=== PATIENT | female | born 1950 | race Caucasian/White ===

== ENCOUNTER → 2023-08-02 11:09 | Outpatient (REF) | payer MEDICARE, OTHER, SELFPAY | LOC: HWRAD 11:09 | PROVIDERS: ATTENDING PHYSICIAN Internal Medicine Rheumatology; FAMILY PHYSICIAN Internal Medicine | DX: M81.0 Age-related osteoporosis without current pathological fracture (principal) | CPT/HCPCS: 77080 ==

== ENCOUNTER 2024-07-03 18:37 | Emergency (ER) | payer MEDICARE, OTHER, SELFPAY ==
[2024-07-03 18:56] VITALS: BP 136/76
--- NOTE | 2024-07-03 18:56 | ED.GENMED ---
ED Provider Triage
<Reji Vyas PA-C - Last Filed: 07/03/24 18:58>
-
Patient seen by provider in Triage?: Seen in Triage
Attestation: A medical screening examination has been initiated by a qualified medical provider. Based on the assessment performed at this time, it has been determined that an emergent medical condition may exist and the patient has been informed
that further medical evaluation and possible additional diagnostic testing may be needed.
HPI: 74-year-old female presenting to the ER for evaluation of sternal chest pain that began around 5:00 described to be a crushing sensation, currently much more dull. Patient noted that she had some pain in her left arm over the weekend which she
took an aspirin for but without much relief. No fevers or infectious symptoms. No recent travel. There is a family history with both mother and father having acute MIs. Patient herself does all conditions. Labs ordered. EKG without any
evidence for acute ischemic changes.
GENERAL: Alert , in no apparent distress
EYE: No visual abnormalities.
NECK: Trachea midline
ENT: No visible abnormalities.
LUNGS: No acute respiratory distress
NEUROLOGICAL: Alert and oriented
SKIN: Skin intact. No visible changes.
MUSCULOSKELETAL: Moving extremities normally
PSYCH: Normal and appropriate interaction.
This is a medical evaluation conducted in person to initiate diagnostic evaluation and provide initial therapeutics. Please see further documentation by the treating clinician.
History of Present Illness
<Reji Vyas PA-C - Last Filed: 07/03/24 18:58>
General
Chief Complaint: Chest Pain
Time Seen by Provider: 07/03/24 20:05
<Nay Veloz DO - Last Filed: 07/04/24 03:04>
History of Present Illness
History of Present Illness:
74-year-old female with out significant past medical history presenting to the emergency department for episode of severe chest pain. Patient reports prior to arrival she was getting ready for dinner and had pain in the midsternal area of her chest
that was severe in quality. Symptoms lasted about 30 minutes and have since resolved. Does note that yesterday she had a pain in her left upper extremity, which also went away on its own. Denies known cardiac history, however does report family
history of cardiac disease. Reports that her pain is currently a 1 out of 10. Denies any difficulty breathing. Denies any recent fever or illness. Denies history of blood clots, recent surgery, recent travel. Denies abdominal pain or GI
symptoms. Denies additional acute medical complaints.
Past History
<Reji Vyas PA-C - Last Filed: 07/03/24 18:58>
Past History
ED Past Medical History: None and Other (Constipation, )
ED Past Surgical History: Appendectomy, Bowel resection (Colon resection ), (X 2) and Other
Social History
Tobacco: Non-smoker
Alcohol: None
Drug: None
Personal:
Living: alone
Phy Exam
<Nay Veloz DO - Last Filed: 07/04/24 03:04>
Physical Exam
Physical Exam:
General: Well-appearing, no clinical signs of dehydration, nontoxic and in no acute distress
HEENT: protecting airway
Neck: appears supple
CV: Normal heart rate, regular rhythm
Resp: No accessory muscle use, no increased work of breathing, lungs clear to auscultation bilaterally
Abd: no distension, no tenderness
Extremities: No deformities, no swelling
Neuro: alert, no focal neurologic deficit
: deferred
Rectal: deferred
Psych: Normal affect
Skin: Intact
Scores
<Nay Veloz DO - Last Filed: 07/04/24 03:04>
Heart Score for Chest Pain Patients
STEMI patient?: No
History: Slightly or Non-Suspicious
ECG: Normal
Age: >/= 65 years
Risk Factors: 1 or 2 Risk Factors
Troponin: </= Normal Limit
Heart Score for Chest Pain Patients: 3
Heart Score Risk: 2.5% MACE over next 6 weeks
Course
<Reji Vyas PA-C - Last Filed: 07/03/24 18:58>
Orders/Labs/Results
Orders:
Orders
07/03/24 18:38
Electrocardiogram (*1) Urgent
Reason for Study: Chest Pain
EKG- Treatment ONCE
07/03/24 19:03
Complete Blood Count/With Diff Urgent
Comprehensive Metabolic Panel Urgent
D-Dimer Urgent
Lipase Urgent
Troponin I Urgent
07/03/24 19:28
CT Chest PE Study Urgent
Comment:
Reason For Exam: chest pain, elevated d-dimer
07/03/24 20:38
Electrocardiogram (*1) Urgent
Reason for Study: Chest Pain
EKG- Treatment ONCE
07/03/24 21:41
Troponin I Urgent
Abnormal Lab Results
07/03/24
19:03
WBC 11.7 H 10^3/uL
(4.8-10.8)
RBC 3.93 L 10^6/uL
(4.20-5.40)
Hct 36.7 L %
(37.0-47.0)
MCH 31.3 H pg
(27.0-31.0)
Absolute Neuts (auto) 8.3 H 10^3/uL
(1.4-6.5)
Absolute Monos (auto) 0.9 H 10^3/uL
(0.1-0.6)
Lymphocytes % 19.3 L %
(20.5-51.1)
D-Dimer 1.13 H ug/mlFEU
(0.00-0.50)
Chloride 97 L mmol/L
(98-107)
Carbon Dioxide 31 H mmol/L
(22-30)
Creatinine 0.5 L mg/dL
(0.6-1.0)
Glucose 109 H mg/dl
(70-99)
AST 45 H U/L
(14-36)
ALT 37 H U/L
(0-35)
07/03/24 19:03
07/03/24 19:03
Vital Signs
Initial and Last Documented VS:
Initial Vital Signs
Pulse Resp BP Pulse Ox
80 22 136/76 9
07/03/24 18:56 07/03/24 18:56 07/03/24 18:56 07/03/24 18:56
Last Documented Vital Signs
Pulse Resp BP Pulse Ox
85 20 154/87 96
07/03/24 20:03 07/03/24 20:03 07/03/24 20:02 07/03/24 20:03
<Nay Veloz, DO - Last Filed: 07/04/24 03:04>
Orders/Labs/Results
Orders:
Orders
07/03/24 18:38
Electrocardiogram (*1) Urgent
Reason for Study: Chest Pain
EKG- Treatment ONCE
07/03/24 19:03
Complete Blood Count/With Diff Urgent
Comprehensive Metabolic Panel Urgent
D-Dimer Urgent
Lipase Urgent
Troponin I Urgent
07/03/24 19:28
CT Chest PE Study Urgent
Comment:
Reason For Exam: chest pain, elevated d-dimer
07/03/24 20:38
Electrocardiogram (*1) Urgent
Reason for Study: Chest Pain
EKG- Treatment ONCE
07/03/24 21:41
Troponin I Urgent
Abnormal Lab Results
07/03/24
19:03
WBC 11.7 H 10^3/uL
(4.8-10.8)
RBC 3.93 L 10^6/uL
(4.20-5.40)
Hct 36.7 L %
(37.0-47.0)
MCH 31.3 H pg
(27.0-31.0)
Absolute Neuts (auto) 8.3 H 10^3/uL
(1.4-6.5)
Absolute Monos (auto) 0.9 H 10^3/uL
(0.1-0.6)
Lymphocytes % 19.3 L %
(20.5-51.1)
D-Dimer 1.13 H ug/mlFEU
(0.00-0.50)
Chloride 97 L mmol/L
(98-107)
Carbon Dioxide 31 H mmol/L
(22-30)
Creatinine 0.5 L mg/dL
(0.6-1.0)
Glucose 109 H mg/dl
(70-99)
AST 45 H U/L
(14-36)
ALT 37 H U/L
(0-35)
07/03/24 19:03
07/03/24 19:03
Vital Signs
Initial and Last Documented VS:
Initial Vital Signs
Pulse Resp BP Pulse Ox
80 22 136/76 9
07/03/24 18:56 07/03/24 18:56 07/03/24 18:56 07/03/24 18:56
Last Documented Vital Signs
Pulse Resp BP Pulse Ox
85 20 154/87 96
07/03/24 20:03 07/03/24 20:03 07/03/24 20:02 07/03/24 20:03
<Nay Veloz, DO - Last Filed: 07/04/24 03:04>
MDM/Problems Addressed
MDM/Problems Addressed:
74-year-old female presenting for episode of severe midsternal chest pain prior to arrival. Vital signs on arrival are normal.
On exam patient is resting comfortably, no acute distress or discomfort. Notes that her symptoms have improved significantly since arrival to the hospital. EKG obtained on arrival, incomplete right bundle branch block without evidence of acute
ischemia. Unremarkable cardiac and pulmonary exam. Patient had laboratory analysis prior to my assessment with undetectable troponin. Lower suspicion for ACS. However, patient also had a D-dimer sent prior to my assessment positive. For
specific activities rule out PE. Aortic pathology is also consideration. Plan for CT chest imaging. Will continue to closely monitor and repeat troponin within 3-hour interval. No tenderness to abdomen without concern for serious intra-abdominal
process or infection.
22:30 - CT chest without acute pathology. Second troponin is undetectable and repeat EKG is unchanged. At this time feel stable for discharge, however with close outpatient follow-up with checkout operator given family history of cardiac disease.
Return precautions discussed with patient and verbalized understanding
<Nay Veloz DO - Last Filed: 07/04/24 03:04>
*EKG
Interpreted by ED Provider?: Yes
EKG Intrepretation Date: 07/03/24
EKG Intrepretation Time: 20:53
Interpretation: normal
Comparison EKG: no comparison EKG present
Heart Rate: 78
Rate: normal
Rhythm: sinus
[place]: normal axis
Interval: normal interval
QRS Pattern: other (incomplete RBBB)
Ischemia: no ischemia
*Critical Care Note
Total Time (30-74mins, 75-104mins- exclusive of procedures): Not Applicable
ED Attending Note
<Reji Vyas PA-C - Last Filed: 07/03/24 18:58>
-
Portions of this chart may have been created with voice recognition software.� Occasional wrong word or��sound alike� substitutions may have occurred due to the inherent limitations of voice recognition software.
Discharge Plan
Departure
Patient Disposition: Home (Routine Discharge)
Date of Disposition: 07/03/24
Time of Disposition: 22:33
Patient with high blood pressure during this ER visit?: Yes
Condition: Good
Discharge Problem:
Chest wall pain
Instructions: Chest pain - Discharge instructions
Prescriptions:
No Action
aspirin 81 MG tablet,delayed release (DR/EC)
81 mg PO DAILY
ascorbic acid (vitamin C) [Vitamin C] 500 MG tablet
1,000 mg PO DAILY
omega-3 fatty acids-fish oil 1 EACH capsule
1 ea PO DAILY
Citracal
2 tab PO DAILY
Vitamin D
2 tab PO DAILY
Patient Comments:
Pt. not sure of the strength
Referrals:
Emile Cooper MD [Active] -
Noman Lewis MD [Family Provider] -
Activity Restrictions/Additional Instructions:
You were seen in the emergency department for chest pain
You were found to have normal EKG, blood work, CT imaging of your chest. Please follow-up closely with a checkout operator.
Please follow-up closely with your primary care physician.
Return to the emergency department for any worsening of your symptoms, or any development of chest pain, difficulty breathing, abdominal pain with persistent vomiting and inability to tolerate food or liquid by mouth (concern for dehydration),
weakness, headache or confusion, fever greater than 100.4, or any additional symptoms that are concerning to you.
Thank you for choosing [facility].
Interventions
Interventions:
*Risk Screen - Suicide Last Done: 07/03/24 18:56
*General Assessment Last Done: 07/03/24 20:12
*Neglect/Abuse Screening Last Done: 07/03/24 18:56
ED- Fall Risk Assessment Last Done: 07/03/24 22:43
*Nursing Disposition Last Done: 07/03/24 22:43
ED- Cardiac Assessment Last Done: 07/03/24 20:12
Discharge Date and Time
Discharge Date/Time: 07/03/24 22:45
Print Language: YI
[2024-07-03 19:09] LABS: % Basophils 0.8 % (0-2); % Eosinophils 0.8 % (0-6); % Immature Granulocytes 0.3 % (0-0.5); % Lymphocytes 19.3 % (20.5-51.1); % Monocytes 7.5 % (1.7-9.3); % Neutrophils 71.3 % (42.2-75.2); Absolute Basophils 0.1 10^3/uL (0-0.2); Absolute Eosinophils 0.1 10^3/uL (0-0.7); Absolute Lymphocytes 2.3 10^3/uL (1.2-3.4); Absolute Monocytes 0.9 10^3/uL (0.1-0.6); Absolute Neutrophils 8.3 10^3/uL (1.4-6.5); Hematocrit 36.7 % (37.0-47.0); Hemoglobin 12.3 g/dL (12.0-16.0); Mean Corp Hgb Conc. 33.5 g/dL (33.0-37.0); Mean Corpuscular Hgb 31.3 pg (27.0-31.0); Mean Corpuscular Volume 93.4 fL (81.0-99.0); Mean Platelet Volume 9.8 fL (7.4-10.4); Nucleated Red Blood Cells % 0 %; Platelet Count 212 10^3/uL (130-400); Red Blood Cell Count 3.93 10^6/uL (4.20-5.40); Red Cell Dist. Width 12.4 % (11.5-14.5); White Blood Cell Count 11.7 10^3/uL (4.8-10.8)
[2024-07-03 19:21] LABS: D-Dimer 1.13 ug/mlFEU (0.00-0.50)
[2024-07-03 19:31] LABS: Troponin I < 0.012 ng/ml
[2024-07-03 19:37] LABS: ALT (SGPT) 37 U/L (0-35); AST (SGOT) 45 U/L (14-36); Albumin 4.1 g/dl (3.5-5.0); Alkaline Phosphatase 73 U/L (38-126); Blood Urea Nitrogen 17 mg/dl (7-17); Calcium 9.2 mg/dl (8.4-10.2); Carbon Dioxide 31 mmol/L (22-30); Chloride 97 mmol/L (98-107); Glucose 109 mg/dl (70-99); Lipase 41 U/L (23-300); Potassium 4.1 mmol/L (3.5-5.1); Sodium 135 mmol/L (135-145); Total Bilirubin 0.4 mg/dl (0.2-1.3); Total Protein 6.7 g/dl (6.3-8.2); eGFR > 60.00
[2024-07-03 20:02] VITALS: BP 154/87
[2024-07-03 20:11] VITALS: BMI 20.3
[2024-07-03 22:10] LABS: Troponin I < 0.012 ng/ml
== END 2024-07-03 22:45 | disposition home or self-care (01) ==
LOC: EMR 18:37
PROVIDERS: Physician Assistant Medical; EMERGENCY PHYSICIAN Student in an Organized Health Care Education/Training Program; FAMILY PHYSICIAN Radiology Radiation Oncology
DX: R07.89 Other chest pain (principal); R03.0 Elevated blood-pressure reading, without diagnosis of hypertension
CPT/HCPCS: 99285; 71275; 80053; 83690; 84484; 85025; 85379; 93005; Q9967

== ENCOUNTER → 2024-07-17 12:36 | Outpatient (REF) | payer MEDICARE, OTHER, SELFPAY | LOC: HWRCS 12:36 | PROVIDERS: ATTENDING PHYSICIAN Nurse Practitioner Family | DX: R07.89 Other chest pain (principal) | CPT/HCPCS: 93306 ==

== ENCOUNTER 2024-09-17 18:28 | Emergency (ER) | payer MEDICARE, OTHER, SELFPAY ==
[2024-09-17 18:34] VITALS: BP 166/86
[2024-09-17 18:53] LABS: Urine Albumin 2+ (Neg - Trace); Urine Bilirubin Negative (Negative); Urine Character Cloudy (Clear); Urine Color Yellow; Urine Glucose Negative (Negative); Urine Ketone Negative (Negative); Urine Leukocyte 3+ (Negative); Urine Nitrite Negative (Negative); Urine Occult Blood 4+ (Negative); Urine Specific Gravity 1.015 (<1.030); Urine Urobilinogen Negative (Neg - 1+)
[2024-09-17 18:54] LABS: % Basophils 0.7 % (0-2); % Eosinophils 1.2 % (0-6); % Immature Granulocytes 0.1 % (0-0.5); % Lymphocytes 22.9 % (20.5-51.1); % Monocytes 6.9 % (1.7-9.3); % Neutrophils 68.2 % (42.2-75.2); Absolute Basophils 0.1 10^3/uL (0-0.2); Absolute Eosinophils 0.1 10^3/uL (0-0.7); Absolute Lymphocytes 2.1 10^3/uL (1.2-3.4); Absolute Monocytes 0.6 10^3/uL (0.1-0.6); Absolute Neutrophils 6.2 10^3/uL (1.4-6.5); Hematocrit 37.2 % (37.0-47.0); Hemoglobin 12.6 g/dL (12.0-16.0); Mean Corp Hgb Conc. 33.9 g/dL (33.0-37.0); Mean Corpuscular Hgb 31.7 pg (27.0-31.0); Mean Corpuscular Volume 93.5 fL (81.0-99.0); Mean Platelet Volume 9.9 fL (7.4-10.4); Nucleated Red Blood Cells % 0 %; Platelet Count 193 10^3/uL (130-400); Red Blood Cell Count 3.98 10^6/uL (4.20-5.40); Red Cell Dist. Width 12.8 % (11.5-14.5); White Blood Cell Count 9.1 10^3/uL (4.8-10.8)
[2024-09-17 19:01] LABS: Urine Red Blood Cell 80-90 /HPF (0-2); Urine Squamous Cell 0-2 /LPF (Few)
[2024-09-17 19:02] LABS: Urine Bacteria Few (Negative)
--- NOTE | 2024-09-17 19:15 | ED.GENMED ---
History of Present Illness
General
Chief Complaint: Urinary Symptoms
Source: patient
Exam Limitations: none
Time Seen by Provider: 09/17/24 19:08
Nursing documentation reviewed up to this point in time: agreed with
History of Present Illness
History of Present Illness:
74-year-old female with history of appendectomy, 2 C-sections, bowel resection 15 years ago presents for right flank and abdominal pain sudden onset at 7 PM tonight with nausea and vomiting twice. She did notice some blood in her urine this morning
and went to urgent care who told her she might have an infection and started her on Macrobid.
Patient states pain was 10/10 is now 7/10, kindly declines when offered pain medicine. She denies fever or chills. She denies burning frequency or urgency with urination.
Past History
Past History
ED Past Medical History: None and Other (Constipation, )
ED Past Surgical History: Appendectomy, Bowel resection (Colon resection ) and (X 2)
Social History
Tobacco: Non-smoker
Alcohol: None
Drug: None
Personal:
Living: alone
Review of Systems
Review of Systems
Allergies reviewed?: Yes
All Other Systems: ROS reviewed and negative except as documented in HPI and ROS
Constitutional: Denies fever or chills
Respiratory: Denies trouble breathing
Cardiac: Denies chest pain
ABD/GI: Reports abdominal pain, nausea and vomiting; Denies diarrhea
: Reports flank pain (Right) and bleeding (Noted blood in urine this morning); Denies dysuria, frequency, difficulty voiding or urgency
Musculoskeletal: Reports other (Patient states she has pain in her right arm, it started last night, no recollection of overuse or injury.)
Skin: Reports no symptoms
Neurological: Reports no symptoms
Phy Exam
Physical Exam
Physical Exam:
GENERAL: No acute distress. A&Ox3.
CONSTITUTIONAL: Afebrile.
EYES: clear, conjunctivae normal
ENMT: moist mucus membranes
RESPIRATORY: Regular respirations, nonlabored, lungs clear.
CARDIOVASCULAR: Regular rate and rhythm, no murmurs, no rubs.
GI: Soft, tender right abdomen and flank, normal BS
MUSCULOSKELETAL: Moves with ease. Well perfused.
SKIN: Warm, dry, pink
PSYCH: Anxious mood and affect. Well kept, interactive and appropriate
NEUROLOGIC: Awake, alert and oriented. No focal neurological deficits
Course
Orders/Labs/Results
Orders:
Orders
09/17/24 18:45
Complete Blood Count/With Diff Urgent
Comprehensive Metabolic Panel Urgent
Lipase Urgent
Urinalysis Reflex To Culture Urgent
Date Specimen was Collected: 09/17/24
Time Specimen was Collected: 18:38
Urine Microscopic Reflex Cult Urgent
Urine Culture Urgent
CYRUS Source: U
Specimen Description:
Date Specimen was Collected: 09/17/24
Time Specimen was Collected: 18:38
09/17/24 19:15
CT Abd/pel Without Iv Or Oral Urgent
Comment:
Reason For Exam: R flank and abd pain, hematuria
09/17/24 20:04
Ondansetron Orally Disint [Zofran Odt (Orally Disintegrating)] 4 mg PO NOW STA
09/17/24 20:05
Ondansetron Orally Disint [Zofran Odt (Orally Disintegrating)] 4 mg .ROUTE .STK-MED ONE
09/17/24 20:25
Ketorolac [Toradol] 15 mg IV NOW STA
Abnormal Lab Results
09/17/24
18:45
RBC 3.98 L 10^6/uL
(4.20-5.40)
MCH 31.7 H pg
(27.0-31.0)
BUN 20 H mg/dl
(7-17)
Glucose 132 H mg/dl
(70-99)
AST 40 H U/L
(14-36)
Ur Occult Blood Reflex 4+ A
(Negative)
Leukocyte Esterase Rfl 3+ A
(Negative)
Urine RBC 80-90 A /HPF
(0-2)
Urine Bacteria (Reflex) Few A
(Negative)
Urine Albumin (Reflex) 2+ A
(Neg - Trace)
09/17/24 18:45
09/17/24 18:45
Vital Signs
Initial and Last Documented VS:
Initial Vital Signs
Temp Pulse Resp BP Pulse Ox
98.4 F 73 18 166/86 95
09/17/24 18:34 09/17/24 18:34 09/17/24 18:34 09/17/24 18:34 09/17/24 18:34
Last Documented Vital Signs
Temp Pulse Resp BP Pulse Ox
98.4 F 76 16 127/70 96
09/17/24 18:34 09/17/24 22:30 09/17/24 22:30 09/17/24 22:30 09/17/24 22:30
MDM/Problems Addressed
Differential Diagnosis Includes:
Kidney stone, ureteral stone, UTI, pyelonephritis
MDM/Problems Addressed:
74-year-old female with history of appendectomy, 2 C-sections, bowel resection 15 years ago presents for right flank and abdominal pain sudden onset at 7 PM tonight with nausea and vomiting twice. She did notice some blood in her urine this morning
and went to urgent care who told her she might have an infection and started her on Macrobid.
Patient states pain was 10/10 is now 7/10, kindly declines when offered pain medicine. She denies fever or chills. She denies burning frequency or urgency with urination.
Afebrile,
7:00 PM:
CBC unremarkable
CMP unremarkable
UA: 80-90 RBCs 3+ leukocyte esterase 4+ occult blood, WBCs 6-10, negative nitrites
8:00 PM:
Patient has kindly refused IV access, Toradol or anything else for pain
She is now vomiting and requesting Zofran and she would like to take Advil p.o.. Zofran administered, if her nausea subsides I will give her p.o. ibuprofen
CT scan pending
10:00 p.m.
IMPRESSION:
There is mild right-sided hydroureteronephrosis without discrete obstructing stone. Findings may be related to recently passed stone however infection can appear similar. Recommend correlation with urinalysis. There is mild hyperdensity within the
lower pole calyx of the right kidney, possible nonobstructing stone.
Colonic diverticulosis.
Patient feeling much better, pain-free
Most likely a passed kidney stone.
*Critical Care Note
Total Time (30-74mins, 75-104mins- exclusive of procedures): Not Applicable
ED Attending Note
-
Portions of this chart may have been created with voice recognition software.� Occasional wrong word or��sound alike� substitutions may have occurred due to the inherent limitations of voice recognition software.
Discharge Plan
Departure
Patient Disposition: Home (Routine Discharge)
Date of Disposition: 09/17/24
Time of Disposition: 22:14
Patient with high blood pressure during this ER visit?: No
Condition: Good
Discharge Problem:
Kidney stone on right side
Instructions: Kidney stones in adults
Prescriptions:
No Action
aspirin 81 MG tablet,delayed release (DR/EC)
81 mg PO DAILY
ascorbic acid (vitamin C) [Vitamin C] 500 MG tablet
1,000 mg PO DAILY
omega-3 fatty acids-fish oil 1 EACH capsule
1 ea PO DAILY
Citracal
2 tab PO DAILY
Vitamin D
2 tab PO DAILY
Patient Comments:
Pt. not sure of the strength
Referrals:
Jay Sweeney MD [Family Provider] - As needed
Activity Restrictions/Additional Instructions:
As we discussed, you most likely passed a kidney stone. There is no visible kidney stone now but your history and the fact that there is mild swelling along the ureter is consistent with a recently passed kidney stone.
Your urine shows no sign of infection so you can stop the Macrobid
You may note some blood in the urine for a short period, drink plenty of water over the next 2 days.
Interventions
Interventions:
*Risk Screen - Suicide Last Done: 09/17/24 18:34
*General Assessment Last Done: 09/17/24 18:34
*Neglect/Abuse Screening Last Done: 09/17/24 19:28
*ED- Fall Risk Assessment Last Done: 09/17/24 19:28
*ED COVID-19 Vaccine History Last Done: 09/17/24 18:37
*Nursing Disposition Last Done: 09/17/24 22:30
ED-Female Genitourinary Assessment Last Done: 09/17/24 19:28
Discharge Date and Time
Discharge Date/Time: 09/17/24 22:30
Print Language: FRISIAN
[2024-09-17 19:16] LABS: ALT (SGPT) 29 U/L (0-35); AST (SGOT) 40 U/L (14-36); Alkaline Phosphatase 76 U/L (38-126); Blood Urea Nitrogen 20 mg/dl (7-17); Calcium 9.9 mg/dl (8.4-10.2); Carbon Dioxide 29 mmol/L (22-30); Chloride 102 mmol/L (98-107); Glucose 132 mg/dl (70-99); Lipase 135 U/L (23-300); Potassium 3.9 mmol/L (3.5-5.1); Sodium 138 mmol/L (135-145); Total Bilirubin 0.4 mg/dl (0.2-1.3); Total Protein 6.7 g/dl (6.3-8.2); eGFR > 60.00
[2024-09-17 19:28] VITALS: BMI 21.1
[2024-09-17] MEDS: ZOFRAN ODT (ORALLY DISINTEGRATING) 4 MG PO (20:05)
[2024-09-17] MEDS: TORADOL 15 MG IV (20:32)
[2024-09-17 22:30] VITALS: BP 127/70
== END 2024-09-17 22:30 | disposition home or self-care (01) ==
LOC: EMR 18:28
PROVIDERS: EMERGENCY PHYSICIAN Emergency Medicine; FAMILY PHYSICIAN Internal Medicine
DX: N13.2 Hydronephrosis with renal and ureteral calculous obstruction (principal); K57.30 Diverticulosis of large intestine without perforation or abscess without bleeding; Z90.49 Acquired absence of other specified parts of digestive tract
CPT/HCPCS: 96374; 99284; 74176; 80053; 81003; 81015; 83690; 85025; 87086

== ENCOUNTER → 2024-10-31 14:20 | Outpatient (REF) | payer MEDICARE, OTHER, SELFPAY | LOC: HWRAD 14:20 | PROVIDERS: ATTENDING PHYSICIAN Nurse Practitioner; FAMILY PHYSICIAN Internal Medicine; REFERRING PHYSICIAN Urology | DX: N13.39 Other hydronephrosis (principal) | CPT/HCPCS: 76775 ==

== ENCOUNTER → 2025-05-17 13:29 | Outpatient (REF) | payer MEDICARE, OTHER, SELFPAY | LOC: PAVMRI 13:29 | PROVIDERS: ATTENDING PHYSICIAN Urology; FAMILY PHYSICIAN Internal Medicine | DX: N28.1 Cyst of kidney, acquired (principal) | CPT/HCPCS: 74183 ==